=== PATIENT | male | born 1980 | race Caucasian/White ===

== ENCOUNTER 2020-11-08 13:15 | Emergency (ER) | payer MEDICAID ==
[~2020-11-08] VITALS: Ht 175.3 cm; Wt 72.0 kg
[2020-11-08] MEDS ORDERED: LORazepam 2 MG TABLET PO ONE (15:00)
[2020-11-08 15:01] VITALS: BP 155/110
== END 2020-11-08 18:54 | disposition home or self-care (01) ==
LOC: EMS 13:15
DX: K94.03 Colostomy malfunction (principal); F15.10 Other stimulant abuse, uncomplicated; F31.9 Bipolar disorder, unspecified; F11.90 Opioid use, unspecified, uncomplicated; F17.200 Nicotine dependence, unspecified, uncomplicated
CPT/HCPCS: 99283